=== PATIENT | female | born 1940 | race Caucasian/White ===

== ENCOUNTER 2020-11-10 10:35 | Outpatient (CLI) | payer MEDICARE, BC | END 2020-11-10 10:36 | disposition home or self-care (01) | LOC: CSHWCC 10:35 | PROVIDERS: ATTEND Nurse Practitioner Family | DX: L89.614 Pressure ulcer of right heel, stage 4 (principal); E11.621 Type 2 diabetes mellitus with foot ulcer; L89.42 Pressure ulcer of contiguous site of back, buttock and hip, stage 2; I10 Essential (primary) hypertension; I70.25 Atherosclerosis of native arteries of other extremities with ulceration; I89.0 Lymphedema, not elsewhere classified; Z85.3 Personal history of malignant neoplasm of breast; Z74.01 Bed confinement status | CPT/HCPCS: 97139; G0463; 99213 ==

== ENCOUNTER 2020-12-01 10:29 | Outpatient (CLI) | payer MEDICARE, BC | END 2020-12-01 10:30 | disposition home or self-care (01) | LOC: CSHWCC 10:29 | PROVIDERS: ATTEND Nurse Practitioner Family | DX: L89.614 Pressure ulcer of right heel, stage 4 (principal); E11.621 Type 2 diabetes mellitus with foot ulcer; L97.509 Non-pressure chronic ulcer of other part of unspecified foot with unspecified severity; E11.51 Type 2 diabetes mellitus with diabetic peripheral angiopathy without gangrene; I70.25 Atherosclerosis of native arteries of other extremities with ulceration; I89.0 Lymphedema, not elsewhere classified; E11.42 Type 2 diabetes mellitus with diabetic polyneuropathy; I10 Essential (primary) hypertension; Z74.01 Bed confinement status; Z85.3 Personal history of malignant neoplasm of breast | CPT/HCPCS: 99213; G0463 ==

== ENCOUNTER 2020-12-23 10:46 | Outpatient (CLI) | payer MEDICARE, BC | END 2020-12-23 10:47 | disposition home or self-care (01) | LOC: CSHWCC 10:46 | PROVIDERS: ATTEND Nurse Practitioner Family | DX: L89.614 Pressure ulcer of right heel, stage 4 (principal); E11.42 Type 2 diabetes mellitus with diabetic polyneuropathy; E11.621 Type 2 diabetes mellitus with foot ulcer; I10 Essential (primary) hypertension; I70.25 Atherosclerosis of native arteries of other extremities with ulceration; I89.0 Lymphedema, not elsewhere classified; Z74.01 Bed confinement status; Z85.3 Personal history of malignant neoplasm of breast | CPT/HCPCS: 97139; G0463; 99213 ==